=== PATIENT | female | born 1955 | race Caucasian/White ===

== ENCOUNTER 2018-07-18 14:21 | Emergency (ER) | payer BC, OTHER ==
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
[2018-07-18] MEDS ORDERED: NS 0.9% 1000 ML** 1,000 ML IV ONE (14:57)
[2018-07-18] MEDS ORDERED: fentaNYL* 50 MCG/ML 2 ML VIAL (100 MCG VIAL) IV SLOW PU ONE (14:58)
[2018-07-18 15:01] LABS: ABS Basophils 0.1 10^3/ul (0-0.2); ABS Eosinophils 0.1 10^3/ul (0-0.6); ABS Lymphocytes 1.5 10^3/ul (1.0-4.8); ABS Monocytes 0.6 10^3/ul (0-0.8); ABS Neutrophils 5.4 10^3/ul (1.5-7.7); ABS Nucleated RBC 0 10^3/ul; Eosinophil % 1.7 %; Hematocrit 39 % (33-41); Hemoglobin 13.2 g/dL (12.0-16.0); Lymphocyte % 19.3 %; Mean Corpuscular HGB Conc 34 g/dL (31-36); Mean Corpuscular Hemoglobin 30 pg (27-31); Mean Corpuscular Volume 89 fL (80-97); Mean Platelet Volume 7.8 fL (7.4-10.4); Nucleated Red Blood Cells % 0.1; Platelet Count 310 10^3/uL (150-450); Red Cell Distribution Width 15 % (10.5-15); White Blood Count 7.7 10^3/uL (3.5-10.8)
[2018-07-18 15:10] LABS: Activated Partial Thrombo Time 26.4 seconds (26.0-36.3); INR 0.92 (0.77-1.02)
[2018-07-18 15:15] LABS: Albumin 3.8 g/dL (3.2-5.2); Albumin/Globulin Ratio 1.4 (1-3); BUN/Creatinine Ratio 22.8 (8-20); Calcium 8.8 mg/dL (8.6-10.3); EGFR African American 88.7 (>60); EGFR Non-African American 73.3 (>60); Globulin 2.8 g/dL (2-4); Total Bilirubin 0.3 mg/dL (0.2-1.0); Total Protein 6.6 g/dL (6.4-8.9)
[2018-07-18] MEDS ORDERED: Iohexol 300* (CONTRAST) 10 ML SDV IV ONE (15:26)
[2018-07-18 17:09] VITALS: BP 150/85
== END 2018-07-18 17:01 | disposition home or self-care (01) ==
LOC: ED 14:21
DX: R07.89 Other chest pain (principal); M25.511 Pain in right shoulder; M25.562 Pain in left knee; S02.5XXA Fracture of tooth (traumatic), initial encounter for closed fracture; V43.52XA Car driver injured in collision with other type car in traffic accident, initial encounter; Y92.410 Unspecified street and highway as the place of occurrence of the external cause; M50.30 Other cervical disc degeneration, unspecified cervical region; I45.4 Nonspecific intraventricular block; M47.812 Spondylosis without myelopathy or radiculopathy, cervical region; K44.9 Diaphragmatic hernia without obstruction or gangrene; Z96.652 Presence of left artificial knee joint; Z88.1 Allergy status to other antibiotic agents; Z88.5 Allergy status to narcotic agent; Z88.0 Allergy status to penicillin
CPT/HCPCS: 36415; 70450; 71045; 71260; 72125; 74177; 80053; 83605; 83690; 83880; 84484; 85025; 85610; 85730; 86850; 86900; 86901; 93005; 96360; 99284; Q9967

== ENCOUNTER 2018-09-26 18:41 | Emergency (ER) | payer MEDICARE, BC ==
[2018-09-26 19:11] VITALS: BP 157/88
--- NOTE | 2018-09-26 19:30 | UC ---
Hand/Wrist HPI - HPI Summary HPI Summary: hit left thumb on a metal door --pain and swelling left thumb n/m/c intact - History Of Current Complaint Chief Complaint: UCUpperExtremity Stated Complaint: LEFT THUMB INJURY Time Seen by Provider: 09/26/18 19:24 Hx Obtained From: Patient ?: No Mechanism Of Injury: hit a door frame with her left thumb Onset/Duration: Sudden Onset Pain Intensity: 5 Pain Scale Used: 0-10 Numeric Character Of Pain: Aching, Throbbing Aggravating Factor(s): Movement Alleviating Factor(s): Rest, Ice Associated Signs And Symptoms: Positive: Swelling Related History: Dominant Hand Right - Allergies/Home Medications Allergies/Adverse Reactions: Allergies Allergy/AdvReac Type Severity Reaction Status Date / Time codeine Allergy Vomiting Verified 09/26/18 19:04 erythromycin base Allergy Vomiting Verified 09/26/18 19:04 Penicillins Allergy Hives Verified 09/26/18 19:04 Home Medications: Home Medications Ciclesonide 80 MCG MDI (NF) [Alvesco 80 MDI (NF)] 2 puff INH BID 09/26/18 [ History Confirmed 09/26/18] PMH/Surg Hx/FS Hx/Imm Hx Previously Healthy: Yes Respiratory History: Asthma GI/ History: Gastroesophageal Reflux Psychological History: Anxiety - Surgical History Surgical History: Yes Surgery Procedure, Year, and Place: OVARY, HYSTERECTOMY,LT KNEE MENISCUS X3,C- SECTION, LEFT TOTAL KNEE REPLACEMENT 03/04/16 - Family History Known Family History: Positive: Hypertension - Social History Occupation: Retired Lives: With Family Alcohol Use: Occasionally Substance Use Type: None Smoking Status (MU): Never Smoked Tobacco Review of Systems All Other Systems Reviewed And Are Negative: Yes Constitutional: Positive: Negative Skin: Positive: Negative Eyes: Positive: Negative ENT: Positive: Negative Respiratory: Positive: Negative Cardiovascular: Positive: Negative Gastrointestinal: Positive: Negative Genitourinary: Positive: Negative Motor: Positive: Negative Neurovascular: Positive: Negative Musculoskeletal: Positive: Arthralgia - left thumb Neurological: Positive: Negative Psychological: Positive: Negative Is Patient Immunocompromised?: Yes Physical Exam Triage Information Reviewed: Yes Appearance: Well-Appearing, No Pain Distress, Well-Nourished Vital Signs: Initial Vital Signs Temp 98.6 F 09/26/18 19:07 Pulse 73 09/26/18 19:07 Resp 14 09/26/18 19:07 BP 157/88 09/26/18 19:07 Pulse Ox 97 09/26/18 19:07 Vital Signs Reviewed: Yes Eye Exam: Normal Eyes: Positive: Conjunctiva Clear ENT Exam: Normal ENT: Positive: Normal ENT inspection, Hearing grossly normal, Pharynx normal. Negative: Trismus, Muffled voice, Hoarse voice Dental Exam: Normal Neck exam: Normal Neck: Positive: Supple, Nontender Respiratory Exam: Normal Respiratory: Positive: Chest non-tender, No respiratory distress, No accessory muscle use Cardiovascular Exam: Normal Cardiovascular: Positive: RRR, Pulses Normal, Brisk Capillary Refill Musculoskeletal Exam: Normal Musculoskeletal: Positive: Strength Intact, ROM Intact, Edema @ - left thumb Neurological Exam: Normal Neurological: Positive: Alert, Muscle Tone Normal Psychological Exam: Normal Skin Exam: Normal Diagnostics - Radiology No standard instances Radiology Interpretation Completed By: ED Physician - small avulsion fracture distal 1st. metacarpal Hand/Wrist Course/Dx - Course Course Of Treatment: rice thumb spica tylenol ibuprofen ultram prn pain follow with orthopedic MD - Differential Dx/Diagnosis Provider Diagnosis: Avulsion fracture of left thumb Discharge - Sign-Out/Discharge Documenting (check all that apply): Patient Departure All imaging exams completed and their final reports reviewed: No - Discharge Plan Condition: Stable Disposition: HOME Patient Education Materials: Avulsion Fracture (ED), R.I.C.E. Treatment (ED), Hypertension (ED) Referrals: Tiffanie Fountain PA [Primary Care Provider] - 2 Weeks (bp re check) Leona Bynum MD [Medical Doctor] - 3 Days (left thumb recheck) - Billing Disposition and Condition Condition: STABLE Disposition: Home
--- NOTE | 2018-09-27 19:39 | UC ---
- Progress Note Progress Note: RADIOLOGY REPORT REVIEWED. NO ACUTE FRACTURE OR DISLOCATION. PATIENT WAS PLACED IN A THUMB SPICA SPLINT AND REFERRED TO ORTHOPEDICS FOR POSSIBLE AVULSION INJURY. I CALLED PATIENT AND ADVISED HER OF RADIOLOGY FINDINGS. INDICATED THAT IF HER PAIN DOES NOT IMPROVE OVER THE NEXT COUPLE OF DAYS SHE SHOULD STILL FOLLOW-UP WITH ORTHOPEDICS ADVISED. Course/Dx - Diagnoses Provider Diagnoses: Avulsion fracture of left thumb Discharge - Sign-Out/Discharge Documenting (check all that apply): Post-Discharge Follow Up All imaging exams completed and their final reports reviewed: Yes - Discharge Plan Condition: Stable Disposition: HOME Patient Education Materials: Hypertension (ED), R.I.C.E. Treatment (ED), Avulsion Fracture (ED) Referrals: Tiffanie Fountain PA [Primary Care Provider] - 2 Weeks (bp re check) Leona Bynum MD [Medical Doctor] - 3 Days (left thumb recheck) - Billing Disposition and Condition Condition: STABLE Disposition: Home
== END 2018-09-26 20:26 | disposition home or self-care (01) ==
LOC: UCEAST 18:41
DX: S62.502A Fracture of unspecified phalanx of left thumb, initial encounter for closed fracture (principal); W22.09XA Striking against other stationary object, initial encounter; Y92.9 Unspecified place or not applicable; J45.909 Unspecified asthma, uncomplicated
CPT/HCPCS: 99213; G0463

== ENCOUNTER 2023-07-03 08:02 | Observation (INO) ==
[~2023-07-03 08:02] MED LIST: Propofol 10 MG/ML 20 ML BTL ONE
[2023-07-03] MEDS ORDERED: ceFAZolin 2 GM in NS PREMIX 2 GM/100 ML BAG IVPB ONE (08:35)
[2023-07-03] MEDS ORDERED: Tranexamic Acid 1 GM/100ML BAG 2,000 MG/200 ML BAG IV ONE (08:35)
[2023-07-03] MEDS ORDERED: Propofol 10 MG/ML 20 ML BTL ONE ×3 (08:38→13:56)
[2023-07-03] MEDS ORDERED: Midazolam 2 mg/2 ml VIAL 1 mg/ml 2 ml VIAL (2 mg) ONE ×2 (08:38→10:39)
[2023-07-03] MEDS ORDERED: Lidocaine 2% PF 5 ML VIAL ONE (08:38)
[2023-07-03 09:10] LABS: Rapid COVID-19 Molecular Undetected (Undetected)
[2023-07-03] MEDS ORDERED: fentaNYL 100 mcg/2 ml 50 MCG/ML VIAL ONE ×3 (09:23→15:17)
[2023-07-03] MEDS ORDERED: ROPIVACAINE 5 MG/ML 30 ML BTL (0.5%) ONE ×2 (10:40→10:42)
[2023-07-03] MEDS ORDERED: Naloxone 0.4 mg VIAL 0.4 mg/ml 1 ml VIAL IV PRN (11:37)
[2023-07-03] MEDS ORDERED: Prochlorperazine 5 mg/ml 2 ml VIAL (10 mg) IV PRN (11:37)
[2023-07-03] MEDS ORDERED: Magnesium Hydroxide LIQ 30 ML UDC PO PRN (14:11)
[2023-07-03] MEDS ORDERED: Lactulose 30 ml UDC PO PRN (14:11)
[2023-07-03] MEDS ORDERED: Morphine 2 MG/ML SYRINGE IV PRN (14:11)
[2023-07-03] MEDS ORDERED: HYDROcodone/ACETAMIN 5/325 mg TAB ONE (15:00)
[2023-07-03] MEDS: HYDROcodone/ACETAMIN 5/325 mg TAB PO PRN (15:01)
[2023-07-03] MEDS: fentaNYL 100 mcg/2 ml 50 MCG/ML VIAL IV PRN (15:18)
[2023-07-03] MEDS: Lactated Ringers 1000 ml BAG 1,000 ML IV SCH (16:32)
[2023-07-03] MEDS: Ondansetron 4 mg VIAL 2 MG/ML 2 ml VIAL ONE (16:32)
[2023-07-03] MEDS ORDERED: Albuterol HFA INHALER 8 gm MDI INH PRN (17:08)
[2023-07-03] MEDS: Morphine 2 MG/ML SYRINGE IV PRN (17:46)
[2023-07-03] MEDS ORDERED: Morphine ORAL.SOLN 10 mg 2 mg/ml UDC 5 ml (10 mg) PO PRN (18:03)
[2023-07-03] MEDS ORDERED: Naloxone 0.4 mg VIAL 0.4 mg/ml 1 ml VIAL IV PUSH PRN (18:04)
[2023-07-03] MEDS: ceFAZolin 1 GM ADVAN 1 GM in NS 0.9% 50 ML 50 ML IVPB SCH (19:58)
[2023-07-03] MEDS: Mometasone/Formoter 100/5 MDI INH SCH (20:35)
[2023-07-03] MEDS: Morphine ORAL.SOLN 10 mg 2 mg/ml UDC 5 ml (10 mg) PO PRN (22:01)
[2023-07-03] MEDS: Magnesium Hydroxide LIQ 30 ML UDC PO SCH (22:04)
[2023-07-03] MEDS: Scopolamine 1 mg/72hr PATCH TRANSDERM PRN (23:09)
[2023-07-04 06:26] LABS: Hematocrit 33.1 % (35-45); Hemoglobin 11.4 g/dL (11.5-14.3); Mean Platelet Volume 7.8 fL (7.5-11.2); Platelet Count 241 10^3/uL (150-450)
[2023-07-04 06:45] LABS: Calcium 8.4 mg/dL (8.6-10.3); Creatinine, Serum 0.73 mg/dL (0.51-0.95); Potassium 4.3 mmol/L (3.5-5.0)
[2023-07-04] MEDS: Vitamin THERAPEUTIC TAB PO SCH (08:48)
[2023-07-04] MEDS ORDERED: ESTRADIOL VAGINAL 10 MCG VAGINAL SCH (09:00)
[2023-07-04] MEDS ORDERED: HYDROcodone/ACETAMIN 5/325 mg TAB PO PRN (10:23)
[2023-07-04 11:05] VITALS: BP 102/54
== END 2023-07-04 14:30 | disposition home or self-care (01) ==
LOC: OR 08:02 → SSU 08:02
PROVIDERS: ADMIT Orthopaedic Surgery Adult Reconstructive Orthopaedic Surgery; ATTEND Orthopaedic Surgery Adult Reconstructive Orthopaedic Surgery